=== PATIENT | female | born 1940 | race Caucasian/White ===

== ENCOUNTER 2018-05-05 13:09 | Emergency (ER) | payer BC, MEDICARE, OTHER ==
[2018-05-05 13:16] VITALS: BP 114/59; PULSE 98; RESP 18; TEMP 97.6
[2018-05-05] MEDS ORDERED: ACETAMINOPHEN TAB 500 MG TAB PO STA (13:48)
--- NOTE | 2018-05-05 15:23 | CT ---
EXAMINATION TYPE: CT lower leg LT wo con DATE OF EXAM: 05/05/2018 COMPARISON: None. HISTORY: Left leg pain after fall. CT DLP: 151.7 mGycm Automated exposure control for dose reduction was used. FINDINGS: Comminuted cortical disruption is identified involving the posterior and weightbearing surface of the lateral tibial plateau with extension medially. The medial tibial plateau appears intact. This fract ure line extends deep to the tubercles of the intercondylar eminence. The posterior aspect of the lat eral tibial plateau demonstrates a separate fracture line with a few millimeters of posterior displac ement and depression of the fracture fragment. Moderate-sized joint effusion with lipohemarthrosis is evident. Ankle is intact. Fibula is intact. Visualized portions of the femur are intact. IMPRESSION: COMMINUTED LATERAL TIBIAL PLATEAU FRACTURE ABOVE. THERE IS A HIGH LIKELIHOOD OF ACL AND PCL INJURY . DEFINITIVE EVALUATION FOR LIGAMENTOUS INJURY WOULD BE BEST ASSESSED WITH MRI.
--- NOTE | 2018-05-05 16:30 | ED ---
Lower Extremity Injury HPI - General Source: patient, family Mode of arrival: wheelchair Limitations: no limitations - History of Present Illness Complaint: knee injury, leg injury Improves With: immobilization Worsens With: weight bearing, movement, palpation Context: fall <Ailin Hunter - Last Filed: 05/05/18 16:20> <Arias Zarate - Last Filed: 05/05/18 21:50> - General Chief Complaint: Extremity Injury, Lower Stated Complaint: Abn Xray Time Seen by Provider: 05/05/18 13:31 - History of Present Illness Initial Comments: 78-year-old female presents with left lower extremity discomfort from yesterday. Patient states she slipped on the last step and fell. Patient complaining of left knee lower extremity area pain. Patient went to Hospital last night and was relieved. Today they called she had a tibial plateau fracture and to come to the emergency room for a CAT scan. Patient here for CAT scan. Patient has been not ambulatory since the injury. Patient's been wearing a knee immobilizer and taking ibuprofen and Tylenol. Patient denies any previous injury no numbness or tingling. No other pain in the lower extremity except for the foot. Patient has a little discomfort on the plantar surface of the mid foot. Reviewed x-rays negative on left foot x-ray. (Ailin Hunter) - Related Data Previous Rx's Medication Instructions Recorded HYDROcodone/APAP 5-325MG [[place] 1 tab PO Q6HR PRN 3 Days #12 tab 05/05/18 5-325] Allergies Allergy/AdvReac Type Severity Reaction Status Date / Time Penicillins Allergy Rash/Hives Verified 05/05/18 13:17 Sulfa (Sulfonamide Allergy Rash/Hives Verified 05/05/18 13:17 Antibiotics) Review of Systems ROS Other: All systems not noted in ROS Statement are negative. Endocrine: Denies: fatigue Gastrointestinal: Denies: nausea Musculoskeletal: Denies: back pain Neurological: Reports: abnormal gait (in WC an dknee immobilizer). Denies: weakness, numbness, paresthesias <Ailin Hunter - Last Filed: 05/05/18 16:20> ROS Other: All systems not noted in ROS Statement are negative. <Arias Zarate - Last Filed: 05/05/18 21:50> ROS Statement: Those systems with pertinent positive or pertinent negative responses have been documented in the HPI. Past Medical History Past Medical History: COPD, Hypertension History of Any Multi-Drug Resistant Organisms: None Reported Past Surgical History: Appendectomy, Section, Cholecystectomy Past Psychological History: No Psychological Hx Reported Smoking Status: Former smoker Past Alcohol Use History: None Reported Past Drug Use History: None Reported <Luiz Huntercie - Last Filed: 05/05/18 16:20> General Exam Limitations: no limitations General appearance: alert, in no apparent distress Head exam: Present: atraumatic, normocephalic, normal inspection Respiratory exam: Present: normal lung sounds bilaterally. Absent: respiratory distress, wheezes, rales, rhonchi, stridor Cardiovascular Exam: Present: regular rate, normal rhythm, normal heart sounds. Absent: systolic murmur, diastolic murmur, rubs, gallop, clicks Left Hip exam: Present: normal inspection. Absent: tenderness, swelling Upper Leg exam: Present: normal inspection, full ROM. Absent: tenderness, swelling Knee exam: Present: normal inspection, tenderness, swelling. Absent: full ROM Lower Leg exam: Present: normal inspection, tenderness, swelling. Absent: full ROM Ankle exam: Present: normal inspection, full ROM. Absent: tenderness, swelling Foot/Toe exam: Present: normal inspection, full ROM, tenderness. Absent: swelling <Ailin Hunter - Last Filed: 05/05/18 16:20> Course <DaleAilin - Last Filed: 05/05/18 16:20> <Arias Zarate - Last Filed: 05/05/18 21:50> Vital Signs 05/05/18 13:10 Temperature 97.6 F Pulse Rate 98 Respiratory 18 Rate Blood Pressure 114/59 O2 Sat by Pulse 90 L Oximetry - Reevaluation(s) Reevaluation #1: 05/05/18 21:49 PA supervision: I proceeded [id number] evaluation the patient did discuss findings the patient and her family. Patient does have a tibial plateau fracture. This is found after the patient had a fall. CAT scan was done which did show this. The case was discussed with Dr. Bowers. Patient will be discharged home in immobilizer with outpatient follow-up. I do agree with the assessment and plan (Arias Zarate) Medical Decision Making <Ailin Hunter - Last Filed: 05/05/18 16:20> <Arias Zarate - Last Filed: 05/05/18 21:50> - Medical Decision Making Reviewed CT report which shows comminuted tibial plateau fracture along with PCL injury. Discussed with Dr. Mazariegos who [facility]. he is willing to admit the patient however the patient can be nonambulatory and has support at home patient may go home and f/u in outpatient setting. Patient family decided she is able to stay home and be nonambulatory and follow-up in the outpatient setting. Patient family aware if symptoms progress or worsen to return for possible admission in the future (Ailin Hunter) Disposition Is patient prescribed a controlled substance at d/c from ED?: Yes When asked, does pt state using other controlled substances?: No If prescribed controlled substance>3 days was MAPS reviewed?: Prescribed <3 Days If opioid is for acute pain is fill amount 7 days or less?: Yes If Rx opioid, was Start Talking consent form obtained?: Yes <Ailin Hunter - Last Filed: 05/05/18 16:20> <Arias Zarate - Last Filed: 05/05/18 21:50> Clinical Impression: Tibial plateau fracture, left Disposition: HOME SELF-CARE Condition: Fair Instructions (If sedation given, give patient instructions): Leg Fracture (ED) Prescriptions: HYDROcodone/APAP 5-325MG [[place] 5-325] 1 tab PO Q6HR PRN 3 Days #12 tab PRN Reason: Pain Referrals: Garcia Mon MD [Primary Care Provider] - 1-2 days Fermín Bowers DO [Medical Doctor] - 1-2 days
== END 2018-05-05 16:39 | disposition home or self-care (01) ==
LOC: EC 13:09
DX: S82.142A Displaced bicondylar fracture of left tibia, initial encounter for closed fracture (principal); Z88.0 Allergy status to penicillin; Z88.2 Allergy status to sulfonamides; Z87.891 Personal history of nicotine dependence; W10.9XXA Fall (on) (from) unspecified stairs and steps, initial encounter
CPT/HCPCS: 99283